=== PATIENT | female | born 1985 | race African-American/Black ===

== ENCOUNTER → 2020-07-28 | Outpatient (CLI) | payer BC ==
[~2020-07-28] MED LIST: CONTRAST GIVEN. MC PRN; IOHEXOL 240 MG/ML 50ML VIAL. PO ONE; IOHEXOL 300 MG/ML 100ML VIAL. IV ONE
--- NOTE | 2020-07-28 16:42 | RAD ---
CT ABDOMEN W History: Reason: UMBILICAL HERNIA, VENTRAL HERNIA, Diastasis Rectus / Spl. Instructions: 75ML OMNI 3 00, 30ML OMNI 240 PO / History: Technique: After the administration of intravenous contrast, CT imaging was performed of the abdomen . Multiplanar images are reviewed. Exposure: One or more of the following individualized dose reduction techniques were utilized for thi s examination: 1. Automated exposure control 2. Adjustment of the mA and/or kV according to patient size 3. Use of iterative reconstruction technique. Comparison: None Findings: Lower chest: 3 mm right lower lobe pulmonary nodule (series 2 image 6). Calcified right middle lobe p ulmonary nodule. 2 mm right middle lobe anterior pleural-based nodule (image 6). Abdomen: The liver, spleen, adrenal glands, and pancreas are unremarkable. Prior cholecystectomy. No biliary ductal dilatation. Patent portal veins. Normal appearance the kidneys. No hydronephrosis. No renal calculi. Diastases recti with protrusion of the transverse colon and small bowel loops anteriorly. Potential t iny fat-containing umbilical hernia. Normal appendix. No evidence of bowel obstruction. Oral contrast opacifies the level of the mid small bowel. Bones: No pathologic osseous lesions. Impression: 1. Diastases recti with anterior protrusion of colonic and small bowel loops. 2. Small pulmonary nodules, likely benign given patient's age. If high risk recommend one-year follo w-up. Electronically signed by: Israel Bajwa DO (07/28/2020 4:40 PM) [id number]
== END ==
LOC: CT 12:59
PROVIDERS: ATTEND Specialist
DX: K42.9 Umbilical hernia without obstruction or gangrene (principal); K43.9 Ventral hernia without obstruction or gangrene; R91.1 Solitary pulmonary nodule; M62.08 Separation of muscle (nontraumatic), other site
CPT/HCPCS: 74160; Q9966; Q9967